=== PATIENT | female | born 1975 | race Hispanic/Latino ===

== ENCOUNTER 2017-04-17 07:24 | Day surgery (SDC) | payer OTHER ==
[2017-04-17 07:42] VITALS: BMI 21.9
[2017-04-17 08:13] VITALS: O2SAT 100
--- NOTE | 2017-04-17 10:34 | CP.SDSHP ---
Same Day Surgery H & P - History Proposed Procedure: EGD Pre-Op Diagnosis: GERD - Allergies Allergies: Allergies No Known Allergies Allergy (Verified 04/17/17 07:43) - Physical Exam General Appearance: NAD Vital Signs: Vital Signs 04/17/17 07:40 Temperature 97.6 F Pulse Rate 60 Respiratory 19 Rate Blood Pressure 99/61 L O2 Sat by Pulse 100 Oximetry Mental Status: Alert & Oriented x3 Neuro: WNL Heart: WNL Lungs: WNL GI: WNL - {Optional Preform as Required} Abdomen: WNL - Impression Pt. Evaluated Today:Candidate for Anesthesia & Procedure: Yes - Date & Time Date: 04/17/17 Time: 10:33 Short Stay Discharge - Short Stay Discharge Admitting Diagnosis/Reason for Visit: GERD Disposition: HOME/ ROUTINE
[2017-04-17] MEDS ORDERED: Propofol 10 mg/ml Inj (20 ML) ONE (10:53)
[2017-04-17 11:20] VITALS: TEMP 98.6
[2017-04-17 11:44] VITALS: BP 110/61; PULSE 76; RESP 16
== END 2017-04-17 11:43 | disposition home or self-care (01) ==
LOC: C.ENDO 07:24
PROVIDERS: ATTEND Internal Medicine Gastroenterology
DX: K21.0 Gastro-esophageal reflux disease with esophagitis (principal); K29.70 Gastritis, unspecified, without bleeding
CPT/HCPCS: 43239; 84703; 88305; J2704